=== PATIENT | male | born 1965 | race Caucasian/White ===

== ENCOUNTER 2019-11-02 09:10 | Day surgery (SDC) | payer OTHER ==
[~2019-11-02] VITALS: Ht 180.3 cm; Wt 112.3 kg
[~2019-11-02 09:10] MED LIST: ROSU10TA PO
--- NOTE | 2019-11-02 09:56 | NUR ---
11/02/19 0956 Ebony Keenan 1 IV MISS IN RW BY JUAN DANIEL UNABLE TO GET IN VEIN 1 IV MISS IN RAC BY JUAN DANIEL UN ABLE TO GET IN VEIN 1 GOOD IV IN RH BY GLORIA PT TOW
== END 2019-11-02 11:05 | disposition home or self-care (01) ==
LOC: ORSCSDS 09:10
PROVIDERS: Internal Medicine Gastroenterology
PROC: 0DBN8ZX Excision of Sigmoid Colon, Via Natural or Artificial Opening Endoscopic, Diagnostic (ICD-10-PCS; principal; 2019-11-02 10:30)
DX: Z12.11 Encounter for screening for malignant neoplasm of colon (principal); K63.5 Polyp of colon; Z86.010 Personal history of colon polyps; Z87.891 Personal history of nicotine dependence; Z79.899 Other long term (current) drug therapy
CPT/HCPCS: 86803; 88305; J2704; J7120